=== PATIENT | female | born 1995 | race Caucasian/White ===

== ENCOUNTER 2018-03-08 01:20 | Emergency (ER) | payer MEDICAID ==
[~2018-03-08] VITALS: Ht 160 cm; Wt 68.0 kg
[2018-03-08 01:24] VITALS: BP 115/65
--- NOTE | 2018-03-08 01:24 | NUR ---
PT PRESENTS TO ED WITH LEFT ANKLE PAIN. PT STATES WALKING IN HIGH-HEELS, LOST BALANCE, AND EVARTED LEFT ANKLE. PT STATES THROBBING 6/10 PAIN. NO REDNESS. <1+ NON-PITTING EDEMA NOTED. CMS INTACT BILAT LOWER EXTREMITIES. VSS. POSITIONED IN BED FOR COMFRT. INSTRUCTED TO ICE AND ELEVATE. ER MD AWARE. CONTINUE TO MONITOR.
--- NOTE | 2018-03-08 01:24 | NUR ---
TO BED # 4 VIA W/C, REPORT GIVEN TO NETO RATLIFF
--- NOTE | 2018-03-08 01:36 | NUR ---
X-Ray at bedside.
--- NOTE | 2018-03-08 01:38 | NUR ---
Dr. Blackmon evaluating patient at bedside.
[2018-03-08 01:57] VITALS: BP 115/65
--- NOTE | 2018-03-08 01:57 | NUR ---
Patient discharged with v/s stable. Written and verbal after care instructions given and explained. Patient alert, oriented and verbalized understanding of instructions. Ambulatory with crutch assist. All questions addressed prior to discharge. ID band removed. Patient advised to follow up with PMD. Rx of Motrin and [place] given. Patient educated on indication of medication including possible reaction and side effects. Opportunity to ask questions provided and answered.
== END 2018-03-08 01:57 | disposition home or self-care (01) ==
LOC: MED 01:20
DX: S93.402A Sprain of unspecified ligament of left ankle, initial encounter (principal); F17.200 Nicotine dependence, unspecified, uncomplicated; Z88.0 Allergy status to penicillin; Z90.49 Acquired absence of other specified parts of digestive tract; X50.1XXA Overexertion from prolonged static or awkward postures, initial encounter; Y93.89 Activity, other specified; Y92.89 Other specified places as the place of occurrence of the external cause; Y99.8 Other external cause status
CPT/HCPCS: 73610; 73630; 99283; Q0092

== ENCOUNTER 2022-01-09 12:24 | Emergency (ER) | payer SELFPAY ==
[~2022-01-09] VITALS: Ht 162.6 cm; Wt 70.8 kg
[2022-01-09] MEDS ORDERED: DICYCLOMINE HCL LIQUID 20 MG, ALUMINUM HYD/MAG/SIMETHICONE 30 ML, LIDOCAINE VISCOUS 2% ... PO ONE ×3 (14:05)
[2022-01-09] MEDS ORDERED: ALUMINUM HYD/MAG/SIMETHICONE 30 ML UDC ONE (14:24)
[2022-01-09] MEDS ORDERED: DICYCLOMINE HCL LIQUID 10 MG/5 ML UDC ONE (14:24)
[2022-01-09 14:43] LABS: BASOPHILS # (AUTO) 0.1 K/uL (0.00-0.22); EOSINOPHILS # (AUTO) 0.1 K/uL (0-0.4); EOSINOPHILS % (AUTO) 1.6 % (0.0-4.0); HEMATOCRIT 37.7 % (36-48); HEMOGLOBIN 13.1 g/dL (12.0-16.0); LYMPHOCYTES # (AUTO) 2.8 K/uL (2.5-16.5); LYMPHOCYTES % (AUTO) 43.9 % (20.5-51.1); MEAN CORPUSCULAR HEMOGLOBIN 31 pg (27-31); MEAN CORPUSCULAR HGB CONC 35 g/dL (33-37); MEAN CORPUSCULAR VOLUME 90.3 fL (80-94); MONOCYTES # (AUTO) 0.5 K/uL (0.8-1.0); MONOCYTES % (AUTO) 7.9 % (1.7-9.3); NEUTROPHILS # (AUTO) 2.9 K/uL (1.8-7.7); NEUTROPHILS % (AUTO) 45.6 % (42.2-75.2); PLATELET COUNT (AUTO) 370 K/uL (140-450); RED BLOOD CELL COUNT(AUTO) 4.18 MIL/uL (4.20-5.40); RED CELL DISTRIBUTION WIDTH 13.5 % (11.6-13.7); WHITE BLOOD COUNT (AUTO) 6.4 K/uL (4.8-10.8)
--- NOTE | 2022-01-09 14:50 | NUR ---
PATIENT PRESENTS TO ED WITH CHEST PAIN AND COUGH . PT STATES CHEST PAIN STARTED LAST SUNDAY AND BEGAN COUGHING WITH BLOOD TODAY . DENIES N/V/D; SKIN IS PINK/WARM/DRY; AAOX4 WITH EVEN AND STEADY GAIT; LUNGS CLEAR BL; HR EVEN AND REGULAR; PT DENIES ANY FEVER, SOB,AT THIS TIME; PATIENT STATES PAIN OF 6/10 WHEN SHE ARRIVED BUT IS NOW 3/10 AFTER MEDICATION; VSS; PATIENT POSITIONED FOR COMFORT; HOB ELEVATED; BEDRAILS UP X2; BED DOWN. ER MD MADE AWARE OF PT STATUS. PMH: ENDOMETRIOSIS NKA
[2022-01-09 15:08] LABS: ALBUMIN 3.7 g/dL (3.4-5.0); ANION GAP 12.9 (8-16); ASPARTATE AMINOTRANSFERASE 19 U/L (15-37); CARBON DIOXIDE 29.7 mmol/L (21-32); CHLORIDE 104 mmol/L (98-107); CREATININE 0.9 mg/dL (0.6-1.3); GFR ARICAN-AMERICAN 98 mL/min (>90); GLUCOSE 96 mg/dL (74-106); POTASSIUM 4.6 mmol/L (3.5-5.1); SODIUM SERUM 142 mmol/L (136-145); TOTAL BILIRUBIN 0.2 mg/dL (0.0-1.0); UREA NITROGEN, BLOOD 15 mg/dL (7-18)
[2022-01-09] MEDS ORDERED: SIME125T38 PO (16:24)
[2022-01-09] MEDS ORDERED: PANT40EC PO (16:24)
--- NOTE | 2022-01-09 16:37 | NUR ---
Patient discharged with v/s stable. Written and verbal after care instructions given and explained. Patient alert, oriented and verbalized understanding of instructions. Ambulatory with car. All questions addressed prior to discharge. ID band removed. Patient advised to follow up with PMD. Rx of PROTONIX AND MYLANTA given. Patient educated on indication of medication including possible reaction and side effects. Opportunity to ask questions provided and answered.
== END 2022-01-09 16:36 | disposition home or self-care (01) ==
LOC: MED 12:24
DX: R07.9 Chest pain, unspecified (principal); K29.70 Gastritis, unspecified, without bleeding; K21.9 Gastro-esophageal reflux disease without esophagitis
CPT/HCPCS: 36415; 71045; 80053; 84484; 85025; 85379; 93005; 99285